=== PATIENT | female | born 1950 | race Caucasian/White ===

== ENCOUNTER → 2023-06-25 15:57 | Outpatient (REF) | payer OTHER, SELFPAY ==
[2023-06-25 16:44] LABS: Albumin 4.1 g/dl (3.5-5.0); Blood Urea Nitrogen 29 mg/dl (7-17); Calcium 9.2 mg/dl (8.4-10.2); Carbon Dioxide 29 mmol/L (22-30); Chloride 102 mmol/L (98-107); Glucose 118 mg/dl (70-99); Phosphorus 4.3 mg/dl (2.5-4.5); Potassium 4.1 mmol/L (3.5-5.1); Sodium 138 mmol/L (135-145); eGFR > 60.00
== END ==
LOC: REG 15:57
PROVIDERS: ATTENDING PHYSICIAN Internal Medicine Cardiovascular Disease; FAMILY PHYSICIAN Internal Medicine
DX: R06.02 Shortness of breath (principal); I10 Essential (primary) hypertension; R73.03 Prediabetes; E66.9 Obesity, unspecified; I35.0 Nonrheumatic aortic (valve) stenosis
CPT/HCPCS: 36415; 80069

== ENCOUNTER → 2023-06-26 08:56 | Outpatient (REF) | payer OTHER, SELFPAY | LOC: RSP 08:56 | PROVIDERS: ATTENDING PHYSICIAN Internal Medicine Cardiovascular Disease; FAMILY PHYSICIAN Internal Medicine | DX: R06.02 Shortness of breath (principal); I10 Essential (primary) hypertension; R73.03 Prediabetes; I35.0 Nonrheumatic aortic (valve) stenosis | CPT/HCPCS: 94727; 94729; 94060 ==

== ENCOUNTER → 2023-07-09 14:23 | Outpatient (REF) | payer OTHER, SELFPAY ==
[2023-07-09 15:54] LABS: D-Dimer 0.56 ug/mlFEU (0.00-0.50)
== END ==
LOC: REG 14:23
PROVIDERS: ATTENDING PHYSICIAN Nurse Practitioner Adult Health
DX: R06.09 Other forms of dyspnea (principal)
CPT/HCPCS: 36415; 85379

== ENCOUNTER → 2023-07-20 10:16 | Outpatient (REF) | payer OTHER, SELFPAY | LOC: HWRAD 10:16 | PROVIDERS: ATTENDING PHYSICIAN Nurse Practitioner Adult Health; FAMILY PHYSICIAN Internal Medicine | DX: R79.89 Other specified abnormal findings of blood chemistry (principal); R06.09 Other forms of dyspnea | CPT/HCPCS: 71275; Q9967 ==

== ENCOUNTER → 2024-04-09 14:05 | Outpatient (REF) | payer OTHER, SELFPAY | LOC: RCS 14:05 | PROVIDERS: ATTENDING PHYSICIAN Internal Medicine Cardiovascular Disease; FAMILY PHYSICIAN Internal Medicine | DX: R06.02 Shortness of breath (principal); Z95.3 Presence of xenogenic heart valve | CPT/HCPCS: 93306; Q9950 ==

== ENCOUNTER 2024-05-28 07:52 | Inpatient (IN) | payer OTHER, SELFPAY ==
[2024-05-21 13:45] VITALS: BMI 39.2
[2024-05-21 13:47] LABS: Hematocrit 41.8 % (37.0-47.0); Hemoglobin 13.5 g/dL (12.0-16.0); Mean Corp Hgb Conc. 32.3 g/dL (33.0-37.0); Mean Corpuscular Hgb 29.3 pg (27.0-31.0); Mean Corpuscular Volume 90.7 fL (81.0-99.0); Mean Platelet Volume 11.1 fL (7.4-10.4); Platelet Count 224 10^3/uL (130-400); Red Blood Cell Count 4.61 10^6/uL (4.20-5.40); Red Cell Dist. Width 14.3 % (11.5-14.5); White Blood Cell Count 7.8 10^3/uL (4.8-10.8)
[2024-05-21 14:14] LABS: ALT (SGPT) 32 U/L (0-35); AST (SGOT) 24 U/L (14-36); Albumin 4.2 g/dl (3.5-5.0); Alkaline Phosphatase 116 U/L (38-126); Blood Urea Nitrogen 19 mg/dl (7-17); Calcium 9.2 mg/dl (8.4-10.2); Carbon Dioxide 29 mmol/L (22-30); Chloride 100 mmol/L (98-107); Estimated Creatinine Clearance 73 ml/min; Glucose 102 mg/dl (70-99); Potassium 4.3 mmol/L (3.5-5.1); Sodium 137 mmol/L (135-145); Total Bilirubin 0.7 mg/dl (0.2-1.3); Total Protein 6.5 g/dl (6.3-8.2); eGFR > 60.00
[2024-05-22 08:51] LABS: Glycohemoglobin (HgbA1c) 6.1 % (4.0-5.6)
[2024-05-22 14:22] VITALS: BMI 39.2
[2024-05-28] VITALS (21 sets, daily range): BP systolic 119–164; BP diastolic 49–78; PULSE 6–67; O2SAT 96
[2024-05-28] MEDS: CELEBREX 200 MG PO (08:25)
[2024-05-28] MEDS: TYLENOL 650 MG PO ×3 (08:25→20:51)
[2024-05-28] MEDS: NORMOSOL-R/PLASMALYTE-A 1000 IV ×2 (08:49→15:15)
--- NOTE | 2024-05-28 10:57 | W.PN.UPDATE ---
Update Note
Progress Note Update
L TKA 05/28/24
DVT ppx ASA
PMH:
1. Osteoarthritis.
2. Morbid obesity, BMI 39.1.
3. Borderline diabetes.
4. Aortic stenosis, s/p AVR bioprosthetic, 2022.
5. CVA, 2022, with residual memory and balance deficits.
6. Hypertension.
7. Hyperlipidemia.
8. Chronic dyspnea on exertion.
9. Restrictive lung disease.
10. Obstructive sleep apnea, CPAP compliant.
11. Fatty liver.
12. Vertigo.
13. Right foot neuropathy, s/p right total hip arthroplasty.
14. Hypothyroidism.
15. Remote tobacco abuse.
--- NOTE | 2024-05-28 11:10 | W.DS.TRANS ---
DC Summary - Web User Experience Strategist
-
Discharge Instructions:
Discharge Diagnosis/Procedures L TKA 05/28/24
Diet Diabetic, Carb Controlled
Activity With Walker
Driving Restrictions No driving
Bathing Restrictions OK to Shower
Other Services PT
Instructions:
Stand-Alone Forms: Total Hip/Knee Replacement D/C
Changes to Home Medications: Yes
Discharge Medications:
DC Medications w/original date entered in [employer]
metoprolol succinate 25 mg tablet,extended release 24 hr 25 mg PO DAILY #30 tabs 07/27/22
atorvastatin 40 mg tablet 40 mg PO HS 05/19/24
fluticasone fur. 100 mcg-umeclid 62.5 mcg-vilant 25 mcg inhalat.powder (Trelegy Ellipta) 1 inh inhalation DAILY 05/19/24
furosemide 20 mg tablet 20 mg PO Q OTHER DAY 05/19/24
levothyroxine 88 mcg tablet 88 mcg PO DAILY 05/19/24
losartan 100 mg tablet 100 mg PO DAILY 05/19/24
cefadroxil 500 mg capsule 500 mg PO BID infection prevention #14 caps 05/21/24
celecoxib 200 mg capsule 200 mg PO DAILY anti-inflammatory #14 caps 05/21/24
dexamethasone 4 mg tablet 4 mg PO BID inflammation #6 tabs 05/21/24
gabapentin 300 mg capsule 300 mg PO HS sleep/pain #10 caps 05/21/24
mupirocin 2 % topical ointment 1 applic topical BID infection prevention #1 tube 05/21/24
ondansetron 4 mg disintegrating tablet 4 mg PO Q6H PRN n/v #20 tabs 05/21/24
oxycodone 5 mg tablet 5 mg PO Q6H PRN 1 tab moderate pain, 2 tabs severe pain #30 tabs 05/21/24
Saccharomyces boulardii 250 mg capsule (Florastor) 250 mg PO BID #1 cap 05/28/24
acetaminophen 325 mg tablet (Tylenol) 650 mg (2 x 325 mg) PO QID #1 tab 05/28/24
aspirin 325 mg tablet,delayed release (Joana Aspirin) 325 mg PO DAILY Blood clot prevention/tx #0 tabs 05/28/24
docusate sodium 100 mg capsule (Colace) 100 mg PO BID stool softner #1 cap 05/28/24
magnesium hydroxide 400 mg/5 mL oral suspension (Milk of Magnesia) 30 ml PO HS PRN Constipation #1 mL 05/28/24
sennosides 8.6 mg tablet (Senokot) 17.2 mg (2 x 8.6 mg) PO BID laxative #2 tabs 05/28/24
Home Medication Changes
cefadroxil 500 mg capsule 500 mg PO BID infection prevention #14 caps 05/21/24
celecoxib 200 mg capsule 200 mg PO DAILY anti-inflammatory #14 caps 05/21/24
dexamethasone 4 mg tablet 4 mg PO BID inflammation #6 tabs 05/21/24
gabapentin 300 mg capsule 300 mg PO HS sleep/pain #10 caps 05/21/24
mupirocin 2 % topical ointment 1 applic topical BID infection prevention #1 tube 05/21/24
ondansetron 4 mg disintegrating tablet 4 mg PO Q6H PRN n/v #20 tabs 05/21/24
oxycodone 5 mg tablet 5 mg PO Q6H PRN 1 tab moderate pain, 2 tabs severe pain #30 tabs 05/21/24
Saccharomyces boulardii 250 mg capsule (Florastor) 250 mg PO BID #1 cap 05/28/24
acetaminophen 325 mg tablet (Tylenol) 650 mg (2 x 325 mg) PO QID #1 tab 05/28/24
aspirin 325 mg tablet,delayed release (Joana Aspirin) 325 mg PO DAILY Blood clot prevention/tx #0 tabs 05/28/24
docusate sodium 100 mg capsule (Colace) 100 mg PO BID stool softner #1 cap 05/28/24
magnesium hydroxide 400 mg/5 mL oral suspension (Milk of Magnesia) 30 ml PO HS PRN Constipation #1 mL 05/28/24
sennosides 8.6 mg tablet (Senokot) 17.2 mg (2 x 8.6 mg) PO BID laxative #2 tabs 05/28/24
Pending Results: No
[2024-05-28] MEDS: ROXICODONE 5 MG PO (12:14)
[2024-05-28] MEDS: DILAUDID 0.5 MG IV (14:36)
[2024-05-28] MEDS: TYLENOL PO (15:15)
--- NOTE | 2024-05-28 15:44 | PTCARENOTE ---
pt admitted to 2S room 2108 from the PACU at 1515. pt arrived via bed, awake and alert. pt oriented to room, call machuca, bed controls and plan of care with verbalized understanding. nursing assessment completed as documented. Left knee dressing
w/scant amount of shadowing noted. neurovascular checks , sensation, and pulse palpable. tolerating sips of water and margarita santana, denies nausea. care ongoing.
[2024-05-28] MEDS: ROXICODONE 10 MG PO (17:47)
[2024-05-28] MEDS: ASPIRIN 325 MG PO (17:47)
[2024-05-28] MEDS: ANCEF 5 IV (17:48)
[2024-05-28] MEDS: SYMBICORT 80/4.5 MCG INHALER 2 PUFF INH (20:30)
[2024-05-28] MEDS: COLACE 100 MG PO (20:50)
[2024-05-28] MEDS: SENOKOT 17.2 MG PO (20:50)
[2024-05-28] MEDS: DECADRON 6 MG IV (20:51)
[2024-05-28] MEDS: ULTRAM 50 MG PO (20:51)
[2024-05-28] MEDS: TORADOL 15 MG IV (20:51)
[2024-05-28] MEDS: BACTROBAN 2% OINTMENT 1 APPLIC NASAL (20:51)
[2024-05-28] MEDS: NEURONTIN 300 MG PO (22:13)
[2024-05-28] MEDS: LIPITOR 40 MG PO (22:14)
[2024-05-29] VITALS (7 sets, daily range): BP systolic 123–190; BP diastolic 59–92; PULSE 73–86
[2024-05-29] MEDS: TYLENOL PO (00:40)
[2024-05-29] MEDS: ANCEF 5 IV (02:37)
[2024-05-29] MEDS: TYLENOL 650 MG PO ×5 (03:42→20:08)
[2024-05-29] MEDS: SYNTHROID 88 MCG PO (05:05)
[2024-05-29] MEDS: ROXICODONE 10 MG PO (05:57)
[2024-05-29] MEDS: SYMBICORT 80/4.5 MCG INHALER 2 PUFF INH ×2 (07:35→20:58)
[2024-05-29] MEDS: SPIRIVA RESPIMAT 2.5 MCG 2 PUFF INH (07:35)
[2024-05-29] MEDS: ASPIRIN 325 MG PO (08:30)
[2024-05-29] MEDS: BACTROBAN 2% OINTMENT 1 APPLIC NASAL ×2 (08:30→20:09)
[2024-05-29] MEDS: SENOKOT 17.2 MG PO ×2 (08:30→20:08)
[2024-05-29] MEDS: CELEBREX 200 MG PO (08:30)
[2024-05-29] MEDS: DECADRON 6 MG IV (08:31)
[2024-05-29] MEDS: COLACE 100 MG PO ×2 (08:31→20:08)
[2024-05-29] MEDS: TOPROL XL 25 MG PO (08:32)
[2024-05-29] MEDS: ULTRAM 50 MG PO ×2 (08:32→20:08)
[2024-05-29] MEDS: TORADOL 15 MG IV ×2 (08:32→20:08)
[2024-05-29] MEDS: FLUSH (NSS) 1 FLUSH IV (08:33)
--- NOTE | 2024-05-29 10:54 | W.PN.ORTHO ---
Today's Communication / Plan
-
d/c
Assessment
.
Distal Motor Intact: Yes
Dressing:
Clean, dry and intact.
Assessment:
Morbid obesity, BMI 39.1.
Borderline diabetes.
-Cefadroxil ppx
Aortic stenosis, s/p AVR bioprosthetic, 2022.
-stable on tele
CVA, 2022, with residual memory and balance deficits--mod I RW
Chronic dyspnea on exertion.
Restrictive lung disease.
Obstructive sleep apnea, CPAP compliant.
Remote tobacco abuse.
--O2 sats stable RA
Plan
.
Surgery / Date: L TKA 05/28/24
DVT Prophylaxis: Aspirin
Activity:
Out of bed.
PT/OT
Discharge Plan: Home w/ Outpatient PT
Subjective
.
.:
Patient resting comfortably.
Vital Signs and Labs
.
Vital Signs and Labs:
Lab Results
05/21/24 12:16
05/21/24 12:17
Temp Pulse Resp BP Pulse Ox
97.8 F 71 16 149/59 99
05/29/24 07:20 05/29/24 08:32 05/29/24 07:38 05/29/24 08:32 05/29/24 07:38
Non-invasive Hgb result: 12.6
Physical Exam
-
HEENT: No pallor, cyanosis, or jaundice. Throat clear.
NECK: Supple. No JVD.
RESPIRATORY: Lungs clear to auscultation.
CVS: S1, S2 normal. RRR.� No murmur, rub or gallop.
ABDOMEN: Soft, non-tender. No distension. BS+/normal.
EXTREMITIES: strength equal, no calf pain with palpation
WOOD TREATING INSPECTOR: AOx3. No focal deficits. telephone station repairer grossly intact
--- NOTE | 2024-05-29 12:02 | CM ---
Addendum entered by Raegan Mckay 05/29/24 16:03:
Pt appealed discharge
Given DND
Clinical information sent to Laura
Original Note:
Met with pt at bedside
Pt reports she lives alone in a 2 story home; 1 step to enter, 12 steps to 2nd fl - has 1/2 bath on FF
Reports independent at baseline with adl's, shopping, home management. Sometimes uses RW for ambulation
DME - rolling walker, single point cane, CPAP (unsure of provider), shower rails
SNF - [facility] in past
HH - [facility] in past
Has ride at discharge - sister
PCP - Noah Patel
Pharm - [facility]
Discussed discharge plan - reports did not schedule outpatient PT prior to surgery. Discussed HH - agreeable to HH - reports no preference
TT sent to [facility] Liaison for HH needs - RN/PT/OT. Neal WHALEY updated
Reports she has some friends who will check in with her. Offered info for private homemakers/companions - interested - will provide with resources.
Given IMM
Plan - home with [facility]
[2024-05-29] MEDS: ROXICODONE 5 MG PO ×2 (12:33→22:37)
--- NOTE | 2024-05-29 13:13 | VNURNOTE ---
[facility] liaison met with patient to discuss [facility] nurse/therapy, visits, schedule, and homebound status. Patient is agreeable and understands that visits at home with be 2-3 x per week to teach medical management. [facility] brochure provided with contact
information. Patient is aware that [facility] will contact her within 1-2 days after discharge from . [facility] referral completed in [facility].
[2024-05-29] MEDS: COZAAR 25 MG PO (14:37)
--- NOTE | 2024-05-29 17:00 | PTCARENOTE ---
assumed care of pt from previous shift at 0715, pt out of bed to chair. assessment as documented. pt medicated per MAR for left knee pain.
pt expressing concerns about being discharged today. pt began to work with PT and pt became increasingly more upset and agitated concerning discharge plan to go home. pt talking over nurse and not receptive to instruction or education by therapist
or nurse. Case management made aware and to see pt. pt then told this sign writer hand her sister was coming to pick her up and no one here cares about her needs. much reassurance provided and plan of care reviewed, sister arrived and pt becoming more
agitated and yelling at PCT, and her sister.
upon entering room, sister expressing concerns about pt and discharge plans. plan of care reviewed and pt's sister told RN pt is c/o feeling dizzy. Nancy Heck made aware. orthostatic vitals done as documented. pt anxious and flushed. Cozaar
provided per MAR. pt then informed RN that she was calling medicare to appeal her discharge. Nancy Heck made aware. care ongoing.
--- NOTE | 2024-05-29 19:45 | PTCARENOTE ---
@1800, entered pt's room and pt found to be walking around room w/RW herself. asked pt why she wasn't calling for assistance and reminded to use call machuca for staff to help her. pt stated she didn't need any help and she was fine! pt changed from
regular clothes to pajamas. pt refused dinner since she ate lunch so late. ice pack applied to left knee. care ongoing.
[2024-05-29] MEDS: LIPITOR 40 MG PO (22:37)
[2024-05-29] MEDS: NEURONTIN 300 MG PO (22:37)
[2024-05-30] MEDS: TYLENOL PO (00:24)
[2024-05-30] MEDS: TYLENOL 650 MG PO ×3 (04:46→14:54)
[2024-05-30] MEDS: SYNTHROID 88 MCG PO (04:46)
[2024-05-30 07:11] VITALS: BP 152/70
[2024-05-30] MEDS: SPIRIVA RESPIMAT 2.5 MCG 2 PUFF INH (07:51)
[2024-05-30] MEDS: SYMBICORT 80/4.5 MCG INHALER 2 PUFF INH (07:51)
[2024-05-30] MEDS: TOPROL XL 25 MG PO (08:54)
[2024-05-30] MEDS: ULTRAM 50 MG PO (08:56)
[2024-05-30] MEDS: ASPIRIN 325 MG PO (08:56)
[2024-05-30] MEDS: CELEBREX 200 MG PO (08:56)
[2024-05-30] MEDS: COLACE 100 MG PO (08:57)
[2024-05-30] MEDS: SENOKOT 17.2 MG PO (08:57)
--- NOTE | 2024-05-30 14:58 | CM ---
Laura found in favor of pt
Neal Heck made aware
Given IMM
Pt aware [facility] to follow at discharge. Was also given list of private caretakers if she feels she needs more assistance
Sister will transport home at time of discharge
Plan - anticipate home with [facility] when medically ready
[2024-05-30 15:00] VITALS: BP 160/68
--- NOTE | 2024-05-30 15:54 | W.PN.ORTHO ---
Today's Communication / Plan
-
d/c
Assessment
.
Distal Motor Intact: Yes
Dressing:
Clean, dry and intact.
Plan
.
Surgery / Date: L TKA 05/28/24
DVT Prophylaxis: Aspirin
Activity:
Out of bed.
PT/OT
Discharge Plan: Home w/ VN
Subjective
.
.:
Patient resting comfortably.
Vital Signs and Labs
.
Vital Signs and Labs:
Lab Results
05/21/24 12:16
05/21/24 12:17
Temp Pulse Resp BP Pulse Ox
97.3 F 69 20 160/68 95
05/30/24 15:00 05/30/24 15:00 05/30/24 15:00 05/30/24 15:00 05/30/24 15:00
Non-invasive Hgb result: 14
Physical Exam
-
HEENT: No pallor, cyanosis, or jaundice. Throat clear.
NECK: Supple. No JVD.
RESPIRATORY: Lungs clear to auscultation.
CVS: S1, S2 normal. RRR.� No murmur, rub or gallop.
ABDOMEN: Soft, non-tender. No distension. BS+/normal.
EXTREMITIES: strength equal, no calf pain with palpation
WELDER SETTER RESISTANCE MACHINE: AOx3. No focal deficits. remediation project engineer grossly intact
== END 2024-05-30 16:42 | disposition home health service (06) | DRG 470 ==
LOC: 2 SOUTH 07:52
PROVIDERS: ADMITTING PHYSICIAN Orthopaedic Surgery; FAMILY PHYSICIAN Internal Medicine; REFERRING PHYSICIAN Internal Medicine Cardiovascular Disease
PROC: 0SRD0J9 Replacement of Left Knee Joint with Synthetic Substitute, Cemented, Open Approach (ICD-10-PCS; 2024-05-28)
DX: M17.12 Unilateral primary osteoarthritis, left knee (principal); E66.01 Morbid (severe) obesity due to excess calories; Z68.39 Body mass index [BMI] 39.0-39.9, adult; R73.03 Prediabetes; I35.0 Nonrheumatic aortic (valve) stenosis; Z95.3 Presence of xenogenic heart valve; I69.111 Memory deficit following nontraumatic intracerebral hemorrhage; I69.11 Cognitive deficits following nontraumatic intracerebral hemorrhage; I10 Essential (primary) hypertension; E78.5 Hyperlipidemia, unspecified; J98.4 Other disorders of lung; G47.33 Obstructive sleep apnea (adult) (pediatric); K76.0 Fatty (change of) liver, not elsewhere classified; Z96.643 Presence of artificial hip joint, bilateral; G57.91 Unspecified mononeuropathy of right lower limb; E03.9 Hypothyroidism, unspecified; Z87.891 Personal history of nicotine dependence; Z96.653 Presence of artificial knee joint, bilateral; Z90.710 Acquired absence of both cervix and uterus; Z59.82 Transportation insecurity; Z79.890 Hormone replacement therapy; Z79.82 Long term (current) use of aspirin
CPT/HCPCS: 36415; 73560; 80053; 83036; 85027; 87070; 94640; 97110; 97116; 97163; 97166; 97530; 97535; C1713; C1776

== ENCOUNTER 2024-06-11 16:56 | Emergency (ER) | payer OTHER, SELFPAY ==
[2024-06-11 16:57] VITALS: BP 169/102
[2024-06-11 17:00] VITALS: BP 183/103
[2024-06-11 19:40] VITALS: BP 166/62
[2024-06-11 20:00] VITALS: BP 134/66
[2024-06-11 20:20] VITALS: BP 175/73
[2024-06-11 20:25] VITALS: BP 171/73
--- NOTE | 2024-06-11 20:28 | ED.GENMED ---
History of Present Illness
<Nadege Solomon MD, Resident - Last Filed: 06/11/24 22:25>
General
Chief Complaint: Blood Pressure Problem
Source: patient
Exam Limitations: none
Time Seen by Provider: 06/11/24 20:03
History of Present Illness
History of Present Illness:
74yo F with PMH HTN, aortic stenosis s/p AVR 2022, CVA, recent TKA 05/28/24 who presents from home to ED for elevated BPs at home. She has a history of hypertension, but does not regularly monitor her BP at home. Since her knee surgery, she has had
visiting nurses almost daily-- VN have commented on elevated BPs multiple times over the past week ranging from 158-180/70-96. Today she reports mild lightheadedness and nausea. Tolerating regular diet, no emesis. She has knee pain from her recent
surgery but is generally improving. Denies vertigo, visual changes, chest pain, shortness of breath, headache.
Past History
<Nadege Solomon MD, Resident - Last Filed: 06/11/24 22:25>
Past History
ED Past Medical History: CVA, HTN, Hypercholesterolemia, Hypothyroidism and Other (Aortic stenosis, VSD, NIKIA on CPAP)
ED Past Surgical History: Cardiac (aortic valve replacement 2022), (X 4) and Orthopedic (L hip replacement 2008, R hip replacement 2016, R TKA 2020, L TKA 2024)
Patient has exhibited threatening behavior?: No
PSI?: No
Social History
Tobacco: Former smoker
Alcohol: Occasional
Drug: None
Personal:
Living: alone
Employment: Employed
Family History
Family History: Early CAD
Review of Systems
<Nadege Solomon MD, Resident - Last Filed: 06/11/24 22:25>
Review of Systems
Allergies reviewed?: Yes
Constitutional: Reports no symptoms; Denies fever, fatigue or chills
EENT: Reports no symptoms
Respiratory: Reports no symptoms; Denies cough or trouble breathing
Cardiac: Reports no symptoms; Denies chest pain, palpitations or syncope
ABD/GI: Denies abdominal pain, vomiting, diarrhea, constipated, bloody stools or black stools
: Reports no symptoms; Denies dysuria or difficulty voiding
Musculoskeletal: Reports joint pain (L knee s/p TKA 05/28/24) and joint swelling (L knee s/p TKA 05/28/24)
Skin: Reports no symptoms
Neurological: Reports no symptoms; Denies dizzy, headache, weakness or numbness
Endocrine: Reports no symptoms
Hematologic/Lymphatic: Reports no symptoms
Psychiatric: Reports no symptoms
Phy Exam
<Nadege Solomon MD, Resident - Last Filed: 06/11/24 22:25>
General Physical Exam
General Presentation: well appearing and no apparent distress
General age: appears stated age
General Skin: warm and dry
General Habitus: obese
General Mental: alert
General Hydration: appears well hydrated
Cardiovascular Exam
Cardiovascular Exam: regular rate/rhythm
Pulmonary Exam
Pulmonary Exam: lungs clear, no respiratory distress, no crackles, no rhonchi, no wheezing and no cough
Gastrointestinal Exam
Gastrointestinal Exam: non tender, soft and non distended (obese abdomen)
Neurological Exam
Neurological Exam: alert, oriented x3 and speech normal
Skin Exam
Skin Exam: normal color, warm/dry and other (well healing surgical incision L knee, mild edema LLE )
Psychiatric Exam
Psychiatric Exam: normal mood/affect
Course
<Nadege Solomon MD, Resident - Last Filed: 06/11/24 22:25>
Orders/Labs/Results
Orders:
Orders
06/11/24 17:03
EKG [Electrocardiogram (*1)] Urgent
Reason for Study: Hypertension, Benign
EKG- Treatment ONCE
06/11/24 20:51
Basic Metabolic Panel Urgent
Complete Blood Count/With Diff Urgent
Abnormal Lab Results
06/11/24
20:51
RBC 4.08 L 10^6/uL
(4.20-5.40)
Hgb 11.7 L g/dL
(12.0-16.0)
Hct 35.5 L %
(37.0-47.0)
Absolute Neuts (auto) 7.2 H 10^3/uL
(1.4-6.5)
Absolute Monos (auto) 0.7 H 10^3/uL
(0.1-0.6)
Lymphocytes % 14.6 L %
(20.5-51.1)
BUN 22 H mg/dl
(7-17)
06/11/24 20:51
06/11/24 20:51
Vital Signs
Initial and Last Documented VS:
Initial Vital Signs
Temp Pulse Resp BP Pulse Ox
97.8 F 80 16 169/102 98
06/11/24 16:57 06/11/24 16:57 06/11/24 16:57 06/11/24 16:57 06/11/24 16:57
Last Documented Vital Signs
Temp Pulse Resp BP Pulse Ox
97.8 F 67 17 171/73 99
06/11/24 16:57 06/11/24 21:15 06/11/24 21:15 06/11/24 20:25 06/11/24 20:45
<Michael Jules, DO - Last Filed: 06/11/24 21:25>
Orders/Labs/Results
Orders:
Orders
06/11/24 17:03
EKG [Electrocardiogram (*1)] Urgent
Reason for Study: Hypertension, Benign
EKG- Treatment ONCE
06/11/24 20:51
Basic Metabolic Panel Urgent
Complete Blood Count/With Diff Urgent
Abnormal Lab Results
06/11/24
20:51
RBC 4.08 L 10^6/uL
(4.20-5.40)
Hgb 11.7 L g/dL
(12.0-16.0)
Hct 35.5 L %
(37.0-47.0)
Absolute Neuts (auto) 7.2 H 10^3/uL
(1.4-6.5)
Absolute Monos (auto) 0.7 H 10^3/uL
(0.1-0.6)
Lymphocytes % 14.6 L %
(20.5-51.1)
BUN 22 H mg/dl
(7-17)
06/11/24 20:51
06/11/24 20:51
Vital Signs
Initial and Last Documented VS:
Initial Vital Signs
Temp Pulse Resp BP Pulse Ox
97.8 F 80 16 169/102 98
06/11/24 16:57 06/11/24 16:57 06/11/24 16:57 06/11/24 16:57 06/11/24 16:57
Last Documented Vital Signs
Temp Pulse Resp BP Pulse Ox
97.8 F 67 17 171/73 99
06/11/24 16:57 06/11/24 21:15 06/11/24 21:15 06/11/24 20:25 06/11/24 20:45
<Nadege Solomon MD, Resident - Last Filed: 06/11/24 22:25>
MDM/Problems Addressed
Differential Diagnosis Includes:
Worsening chronic hypertension vs elevated BP 2/2 postoperative pain
MDM/Problems Addressed:
74yo F with PMH HTN, aortic stenosis s/p AVR 2022, CVA, recent TKA 05/28/24 presenting for evaluation of elevated BPs
No symptoms of hypertensive emergency or end organ dysfunction. Will check CBC/BMP.
Reports compliance with BP medications, no missed doses
Suspect elevated BPs are due to postoperative pain from recent TKA
<Michael Jules DO - Last Filed: 06/11/24 21:25>
MDM/Problems Addressed
MDM/Problems Addressed:
Uncontrolled hypertension, postoperative knee replaced
<Michael Jules DO - Last Filed: 06/11/24 21:25>
*Pulse Oximetry
Patient hypoxic: no
*EKG
Interpreted by ED Provider?: Yes
Interpretation: normal
Rate: normal
Rhythm: sinus and PVC's
Ischemia: non-specific ST changes
*Graduate Student Interpretation
Rate: normal
Interpretation: normal
Rhythm: sinus
*Critical Care Note
Total Time (30-74mins, 75-104mins- exclusive of procedures): Not Applicable
Data Reviewed
Source: patient
Prescriptions/Medications Considered But Not Given:
Considered increasing metoprolol the patient is stable. Blood pressure trending down.
<Nadege Solomon MD, Resident - Last Filed: 06/11/24 22:25>
Update Note
Update Note:
0: BMP reassuring of normal kidney function, Cr 0.7. CBC unremarkable, mild anemia noted. BPs remain elevated though stable, systolic ranging from 133-171. Elevated BPs likely secondary to acute pain in postoperative period. Will defer chronic
management of hypertension to PCP-- discussed importance of following up with PCP as well as return to ED precautions. She is understanding and agreeable with plan. She has no further questions at this time.
ED Attending Note
<Nadege Solomon MD, Resident - Last Filed: 06/11/24 22:25>
-
Portions of this chart may have been created with voice recognition software.� Occasional wrong word or��sound alike� substitutions may have occurred due to the inherent limitations of voice recognition software.
<Michael P. DiEnna, DO - Last Filed: 06/11/24 21:25>
ED Attending Note
Patient seen and examined by attending physician: Yes
I performed a history and physical exam of patient and discussed management with resident, I reviewed resident's note and agree with documented findings and plan of care.: Yes
ED Attending Note:
74-year-old female presents concerns of her blood pressure. She recently had knee replacement surgery. Patient states that home care nurses started to make her nervous. Patient does have a history of stroke. Her blood pressure at home range
between 150 and 170 systolic. No chest pain. No shortness of breath. No numbness. No tingling. No motor weakness. Exam: Awake and alert, no focal deficits noted, feels better. Assessment and plan: Blood pressures trended down. She will
follow-up with her PCP regarding outpatient follow-up and adjustments if needed. Labs are reassuring.
Discharge Plan
Departure
Patient Disposition: Home (Routine Discharge)
Date of Disposition: 06/11/24
Time of Disposition: 21:28
Patient with high blood pressure during this ER visit?: Yes
Discharge Problem:
Hypertension
Instructions: DASH diet, High blood pressure - ED discharge instructions
Prescriptions:
No Action
metoprolol succinate 25 mg Tablet Extended Release 24 Hr
25 mg PO DAILY Qty: 30 0RF
atorvastatin 40 mg tablet
40 mg PO HS
levothyroxine 88 mcg Tablet
88 mcg PO DAILY
furosemide 20 mg Tablet
20 mg PO Q OTHER DAY
Trelegy Ellipta 100-62.5-25 mcg Blister With Device
1 inh INHALATION DAILY
losartan 100 mg Tablet
100 mg PO DAILY
mupirocin 2 % ointment
1 applic topical BID Qty: 1 0RF
Patient Comments:
Patient administered the mupirocin this morning 05/28/24 @ 06:30. Patient started this administration on 05/27/24 in the evening.
celecoxib 200 mg capsule
200 mg PO DAILY Qty: 14 0RF
Rx Instructions:
*take with food
*space out 2 hours from aspirin
cefadroxil 500 mg capsule
500 mg PO BID Qty: 14 0RF
Rx Instructions:
*Take w/ food
*Take w/ probiotic
*POST-OP USE
dexamethasone 4 mg tablet
4 mg PO BID Qty: 6 0RF
Rx Instructions:
take with food
post-op use only
gabapentin 300 mg capsule
300 mg PO HS Qty: 10 0RF
ondansetron 4 mg tablet,disintegrating
4 mg PO Q6H PRN (Reason: n/v) Qty: 20 0RF
Rx Instructions:
take 1/2h b/f pain med if recurrent nausea
allow to dissolve in mouth w/o water
oxycodone 5 mg tablet
5 mg PO Q6H PRN (Reason: 1 tab moderate pain, 2 tabs severe pain) Qty: 30 0RF
Rx Instructions:
Ongoing therapy
sennosides [Senokot] 8.6 mg tablet
17.2 mg PO BID Qty: 2 0RF
acetaminophen [Tylenol] 325 mg tablet
650 mg PO QID Qty: 1 0RF
Rx Instructions:
SCHEDULED DOSING
magnesium hydroxide [Milk of Magnesia] 400 mg/5 mL suspension
30 ml PO HS PRN (Reason: Constipation) Qty: 1 0RF
docusate sodium [Colace] 100 mg capsule
100 mg PO BID Qty: 1 0RF
Saccharomyces boulardii [Florastor] 250 mg capsule
250 mg PO BID Qty: 1 0RF
aspirin [Joana Aspirin] 325 mg Tablet,Delayed Release (Dr/Ec)
325 mg PO DAILY Qty: 0 0RF
Referrals:
Noah Patel MD [Family Provider] - Next open appointment (Call your Primary Care Provider tomorrow to discuss your blood pressure and schedule a follow up appointment. Please let them know if you have concerns about transportation to your
appointment.)
Activity Restrictions/Additional Instructions:
You were seen in the Emergency Room for high blood pressures. You have a history of high blood pressure too.
Fortunately, you do not have any symptoms of blood pressures that are suddenly too high. Your blood work was also reassuring, and showed your kidney function is normal.
Please call your Primary Care Provider tomorrow to update them on your visit to the Emergency Room and schedule follow up appointment. It is very important to see your Primary Care Provider and control your blood pressures long-term. Bring your
blood pressure cuff to your next appointment so you can compare it to the BP cuff at the doctors office. Also bring a list of your BP measurements at home.
Return to the Emergency Room for worsening symptoms such as chest pain, difficulty breathing, headache not relieved by tylenol/motrin, or any new concerns.
Interventions
Interventions:
*Risk Screen - Suicide Last Done: 06/11/24 16:57
*General Assessment Last Done: 06/11/24 21:48
*Neglect/Abuse Screening Last Done: 06/11/24 16:57
ED- Fall Risk Assessment Last Done: 06/11/24 21:48
*ED COVID-19 Vaccine History Last Done: 06/11/24 21:48
*Nursing Disposition Last Done: 06/11/24 21:48
ED- Cardiac Assessment Last Done: 06/11/24 19:43
ED- Neurological Assessment Last Done: 06/11/24 19:43
ED- Pulmonary Assessment Last Done: 06/11/24 19:43
Discharge Date and Time
Discharge Date/Time: 06/11/24 21:49
Print Language: CHADIAN
[2024-06-11 20:58] LABS: % Basophils 0.7 % (0-2); % Eosinophils 2.9 % (0-6); % Immature Granulocytes 0.4 % (0-0.5); % Lymphocytes 14.6 % (20.5-51.1); % Monocytes 6.9 % (1.7-9.3); % Neutrophils 74.5 % (42.2-75.2); Absolute Basophils 0.1 10^3/uL (0-0.2); Absolute Eosinophils 0.3 10^3/uL (0-0.7); Absolute Lymphocytes 1.4 10^3/uL (1.2-3.4); Absolute Monocytes 0.7 10^3/uL (0.1-0.6); Absolute Neutrophils 7.2 10^3/uL (1.4-6.5); Hematocrit 35.5 % (37.0-47.0); Hemoglobin 11.7 g/dL (12.0-16.0); Mean Corpuscular Hgb 28.7 pg (27.0-31.0); Mean Platelet Volume 9.9 fL (7.4-10.4); Nucleated Red Blood Cells % 0 %; Platelet Count 228 10^3/uL (130-400); Red Blood Cell Count 4.08 10^6/uL (4.20-5.40); Red Cell Dist. Width 14.5 % (11.5-14.5); White Blood Cell Count 9.6 10^3/uL (4.8-10.8)
[2024-06-11 21:16] LABS: Blood Urea Nitrogen 22 mg/dl (7-17); Calcium 9.1 mg/dl (8.4-10.2); Carbon Dioxide 27 mmol/L (22-30); Chloride 105 mmol/L (98-107); Glucose 96 mg/dl (70-99); Potassium 4.7 mmol/L (3.5-5.1); Sodium 139 mmol/L (135-145); eGFR > 60.00
== END 2024-06-11 21:49 | disposition home or self-care (01) ==
LOC: EMR 16:56
PROVIDERS: EMERGENCY PHYSICIAN Emergency Medicine; FAMILY PHYSICIAN Internal Medicine
DX: I10 Essential (primary) hypertension (principal); E78.00 Pure hypercholesterolemia, unspecified; E03.9 Hypothyroidism, unspecified; I35.0 Nonrheumatic aortic (valve) stenosis; G47.33 Obstructive sleep apnea (adult) (pediatric); Z82.49 Family history of ischemic heart disease and other diseases of the circulatory system; Z86.73 Personal history of transient ischemic attack (TIA), and cerebral infarction without residual deficits; Z87.891 Personal history of nicotine dependence; Z95.2 Presence of prosthetic heart valve; Z96.641 Presence of right artificial hip joint; Z96.659 Presence of unspecified artificial knee joint
CPT/HCPCS: 99283; 80048; 85025; 93005

== ENCOUNTER → 2024-10-30 14:32 | Outpatient (REF) | payer OTHER, SELFPAY | LOC: RCS 14:32 | PROVIDERS: ATTENDING PHYSICIAN Internal Medicine Cardiovascular Disease; FAMILY PHYSICIAN Internal Medicine | DX: R93.1 Abnormal findings on diagnostic imaging of heart and coronary circulation (principal) | CPT/HCPCS: 93306; Q9950 ==

== ENCOUNTER → 2025-03-05 15:14 | Outpatient (REF) | payer OTHER, SELFPAY ==
[2025-03-05 16:18] LABS: Hematocrit 41.6 % (37.0-47.0); Hemoglobin 13.2 g/dL (12.0-16.0); Mean Corp Hgb Conc. 31.7 g/dL (33.0-37.0); Mean Corpuscular Volume 89.1 fL (81.0-99.0); Nucleated Red Blood Cells % 0 %; Platelet Count 233 10^3/uL (130-400); Red Cell Dist. Width 14.0 % (11.5-14.5)
[2025-03-05 16:33] LABS: ALT (SGPT) 22 U/L (0-35); AST (SGOT) 20 U/L (14-36); Albumin 4.0 g/dl (3.5-5.0); Alkaline Phosphatase 116 U/L (38-126); Blood Urea Nitrogen 17 mg/dl (7-17); Calcium 9.2 mg/dl (8.4-10.2); Carbon Dioxide 30 mmol/L (22-30); Chloride 106 mmol/L (98-107); Glucose 92 mg/dl (70-99); Potassium 4.4 mmol/L (3.5-5.1); Sodium 141 mmol/L (135-145); Total Protein 6.4 g/dl (6.3-8.2); eGFR > 60.00
[2025-03-05 17:04] LABS: TSH 3.73 uIU/ml (0.47-4.68)
== END ==
LOC: REG 15:14
PROVIDERS: ATTENDING PHYSICIAN Internal Medicine
DX: K59.00 Constipation, unspecified (principal); E03.9 Hypothyroidism, unspecified; I10 Essential (primary) hypertension
CPT/HCPCS: 36415; 80053; 84439; 84443; 85025

== ENCOUNTER 2025-03-12 06:21 | Day surgery (SDC) | payer OTHER, SELFPAY | END 2025-03-12 13:54 | disposition home or self-care (01) | LOC: GI 06:21 | PROVIDERS: ATTENDING PHYSICIAN Specialist | DX: Z12.11 Encounter for screening for malignant neoplasm of colon (principal); K57.30 Diverticulosis of large intestine without perforation or abscess without bleeding; D12.2 Benign neoplasm of ascending colon; D12.3 Benign neoplasm of transverse colon; Z86.0101 Personal history of adenomatous and serrated colon polyps | CPT/HCPCS: 45385; 45380; 88305 ==

== ENCOUNTER 2025-03-26 13:36 | Inpatient (IN) | payer OTHER, SELFPAY ==
[2025-03-25 17:35] VITALS: BP 166/84
[2025-03-25 18:07] LABS: Hematocrit 43.3 % (37.0-47.0); Hemoglobin 14.5 g/dL (12.0-16.0); Mean Corp Hgb Conc. 33.5 g/dL (33.0-37.0); Mean Corpuscular Volume 85.7 fL (81.0-99.0); Nucleated Red Blood Cells % 0 %; Platelet Count 198 10^3/uL (130-400); Red Cell Dist. Width 14.0 % (11.5-14.5)
[2025-03-25 18:25] LABS: COVID-19 Antigen Negative (Negative)
[2025-03-25 18:29] LABS: ALT (SGPT) 17 U/L (0-35); AST (SGOT) 19 U/L (14-36); Albumin 4.3 g/dl (3.5-5.0); Alkaline Phosphatase 117 U/L (38-126); Blood Urea Nitrogen 18 mg/dl (7-17); Calcium 9.2 mg/dl (8.4-10.2); Carbon Dioxide 21 mmol/L (22-30); Chloride 103 mmol/L (98-107); Glucose 147 mg/dl (70-99); Lipase 40 U/L (23-300); Potassium 4.1 mmol/L (3.5-5.1); Sodium 132 mmol/L (135-145); Total Protein 7.1 g/dl (6.3-8.2); eGFR 59.12
[2025-03-25 20:03] LABS: Urine Character Cloudy (Clear)
[2025-03-25 20:19] LABS: Urine White Cell >100 /HPF (0-5)
--- NOTE | 2025-03-25 20:46 | ED.GENMED ---
History of Present Illness
General
Chief Complaint: Abdominal Pain
Source: patient
Exam Limitations: none
Time Seen by Provider: 03/25/25 20:23
Nursing documentation reviewed up to this point in time: agreed with
History of Present Illness
History of Present Illness:
The patient is a 75-year-old female with history of aortic stenosis status post tissue AVR 2022, obstructive sleep apnea utilizes CPAP, hypertension, hyperlipidemia, hypothyroidism, CVA, presenting with a two-day history of fever, chills, and body
aches. She also reports new onset burning during urination which began today, with no prior history of urinary tract infections. The patient states she was unaware she had a fever. Symptoms worsen during the evening, impacting her sleep; she falls
asleep briefly but is awakened by discomfort. She has experienced nausea and vomiting today but denies diarrhea.
The patient mentions right upper quadrant tenderness noticed last night but denies pulling any muscles or participating in vigorous workouts. She describes no specific pain associated with the area. A history of aortic valve replacement with a
tissue valve is noted.
She has also noted some lower substernal chest discomfort, worse at nighttime, worse throughout the day today especially with onset of nausea and vomiting. She has had no hematemesis.
She has noted intermittent dry cough today. No nasal congestion or sore throat. No headache.
No history of similar episodes in the past.
No recent travel. No close contacts with similar symptoms.
She has not taken anything for her symptoms.
Past History
Past History
ED Past Medical History: CVA, HTN, Hypercholesterolemia, Hypothyroidism and Other (Aortic stenosis, VSD, NIKIA on CPAP)
ED Past Surgical History: Cardiac (aortic valve replacement 2022), (X 4) and Orthopedic (L hip replacement 2008, R hip replacement 2016, R TKA 2020, L TKA 2024)
Patient has exhibited threatening behavior?: No
PSI?: No
Social History
Tobacco: Former smoker
Alcohol: Occasional
Drug: None
Personal:
Living: alone
Employment: Employed
Family History
Family History: Early CAD
Phy Exam
Physical Exam
Physical Exam:
GENERAL: 75-year-old woman appears somewhat younger than stated age. She is bright and alert, pleasant, easily communicative, appears in no acute distress. Febrile at 101.7 �F. Patient was unaware that she had a fever.
EYE: anicteric
NECK: Supple, nontender, no meningismus, no significant adenopathy.
ENT: posterior pharynx is clear, oral mucosa is very minimally dry. TM clear b/l, nares patent.
CARDIAC: Regular rhythm, mildly tachycardic. no murmur.
LUNGS: Clear breath sounds bilaterally, no acute respiratory distress, no wheezes/rales/rhonchi. No cough appreciated during exam.
ABDOMEN: Rotund, soft, nondistended, mild tenderness epigastric region, mild to moderate tenderness right upper quadrant, no r/g, no cvat. normoactive BS.
NEUROLOGICAL: Alert and oriented x3, no focal neuro deficits.
SKIN: Mildly hot to touch and dry, normal color, skin intact. No rash.
MUSCULOSKELETAL: No C/C/E. peripheral pulses are full and equal b/l. No palpable tenderness.
PSYCH: Normal and appropriate interaction.
Sepsis
Sepsis Screening
Sepsis Assessment: Sepsis
Sepsis Screen
Sepsis Screen: Sepsis
Date: 03/25/25
Time: 20:40
Course
Orders/Labs/Results
Orders:
Orders
03/25/25 17:40
Electrocardiogram (*1) Urgent
Reason for Study: Other
Other Reason for Exam: Possible Sepsis
03/25/25 17:41
EKG- Treatment ONCE
03/25/25 17:54
COVID-19 Antigen Urgent
Source: Nasal Swab
Complete Blood Count/With Diff Urgent
Comprehensive Metabolic Panel Urgent
Lactic Acid Q4H
Comment: ON ICE, CANCEL 2ND ORDER IF FIRST LACTIC ACID LEVEL <2
Lipase Urgent
Blood Culture Q20M
VERITO Source: Blood/Venous
Specimen Description:
Comment: Urgent from separate sites. If patient screens positive for possible sepsis
03/25/25 17:57
Influenza A+B Rapid Molecular Urgent
VERITO Source: Nasal Swab
Specimen Description:
03/25/25 19:56
Urinalysis Reflex To Culture Urgent
Urine Microscopic Reflex Cult Urgent
Urine Culture Urgent
VERITO Source: U
Specimen Description:
03/25/25 20:40
0.9% Sodium Chloride 1000 ml [Nss] 1,000 ml IV BOLUS
Acetaminophen [Tylenol] 1,000 mg PO NOW STA
CefTRIAXone [Rocephin] 1,000 mg IV NOW STA
03/25/25 20:43
CT Abd/pelvis W Iv Cont Urgent
Comment:
Reason For Exam: fever, RUQ pain, N/V
03/25/25 20:45
CR Chest - 2 Views Urgent
Comment:
Reason For Exam: fever x 2 days, CP, cough-onset today
03/25/25 20:55
Troponin I Urgent
Blood Culture Q20M
VERITO Source: Blood/Venous
Specimen Description:
Comment: Urgent from separate sites. If patient screens positive for possible sepsis
Abnormal Lab Results
03/25/25 03/25/25
17:54 19:56
WBC 15.7 H 10^3/uL
(4.8-10.8)
MPV 11.0 H fL
(7.4-10.4)
Abs Immat Gran (auto) 0.1 H 10^3/uL
(0-0.05)
Absolute Neuts (auto) 14.1 H 10^3/uL
(1.4-6.5)
Absolute Lymphs (auto) 0.5 L 10^3/uL
(1.2-3.4)
Absolute Monos (auto) 0.9 H 10^3/uL
(0.1-0.6)
Neutrophils % 90.2 H %
(42.2-75.2)
Lymphocytes % 3.1 L %
(20.5-51.1)
Sodium 132 L mmol/L
(135-145)
Carbon Dioxide 21 L mmol/L
(22-30)
BUN 18 H mg/dl
(7-17)
Glucose 147 H mg/dl
(70-99)
Total Bilirubin 1.7 H mg/dl
(0.2-1.3)
Ur Occult Blood Reflex 4+ A
(Negative)
Leukocyte Esterase Rfl 3+ A
(Negative)
Urine WBC (Reflex) >100 A /HPF
(0-5)
Urine Bacteria (Reflex) Many A
(Negative)
Urine Albumin (Reflex) 3+ A
(Neg - Trace)
03/25/25 17:54
03/25/25 17:54
Vital Signs
Initial and Last Documented VS:
Initial Vital Signs
Temp Pulse Resp BP Pulse Ox
101.5 F H 112 16 166/84 97
03/25/25 17:35 03/25/25 17:35 03/25/25 17:35 03/25/25 17:35 03/25/25 17:35
Last Documented Vital Signs
Temp Pulse Resp BP Pulse Ox
98.2 F 84 16 146/78 100
03/25/25 22:32 03/25/25 22:32 03/25/25 22:32 03/25/25 22:32 03/25/25 22:32
MDM/Problems Addressed
Differential Diagnosis Includes:
The Differential Diagnosis includes, in no particular order and is not limited to:
- Urinary tract infection
- Pyelonephritis
- Gallbladder disease
- Pneumonia
- Viral infection
- Bacterial infection
- Gastroenteritis
- Dehydration
- Acute kidney injury
- Medication side effect
MDM/Problems Addressed:
Acute febrile illness
Acute UTI symptoms
Acute nausea and vomiting, right upper quadrant pain
Acute chest pain
Noted to be moderately febrile, mildly tachycardic, normotensive.
Meets clinical criteria for SIRS. Concern for sepsis.
With onset of chest pain, this could certainly be GERD in nature but must also consider ACS. No history of thromboembolism, denies shortness of breath, no leg pain or swelling thus PE is unlikely.
With history of nausea and vomiting throughout the day today, concern for acute dehydration
Right upper quadrant pain, concern for cholecystitis, pyelonephritis, diverticulitis, less likely appendicitis.
Labs thus far reveal elevated white blood cell count of 17.7.
Chemistries show mild prerenal azotemia. Mildly elevated T. bili of 1.7. All other LFTs as well as lipase within normal limits.
Urinalysis quite suspicious for UTI with many bacteria, greater than 100 WBCs.
Lactic acid is normal at 1.3.
COVID and flu testing are negative.
Will initiate IV fluid bolus, give Tylenol for fever and will initiate Rocephin for suspected UTI.
Blood cultures are pending.
Will check chest x-ray as well as CT abdomen pelvis.
Due to concern for potential bacteremia with history of aortic valve replacement, multiple joint replacements patient will require IV antibiotics and admission to hospital.
Blood cultures are pending.
Chronic conditions affecting care:
History of tissue aortic valve replacement, bilateral hip as well as bilateral knee replacements.
Obstructive sleep apnea�utilizes CPAP
History of hypertension, hyperlipidemia, CVA, hypothyroidism
*Radiology
Radiology exam reviewed: radiology read reviewed (CT shows mild right perinephric stranding and enhancement of the proximal right collecting system suggesting infection. Nonvisualization of the UVJ due to bilateral hip replacements. There is also
note of a rounded mildly hypodense area left kidney measuring 2.8 cm. This is new compared to previo)
*Pulse Oximetry
SaO2: 97
Oxygen Mode of Delivery: Room air
Patient hypoxic: no
*EKG
Interpreted by ED Provider?: Yes
Interpretation: abnormal
Comparison EKG: no changes (Unchanged from previous June 2024 save for heart rate has increased)
Rate: tachycardiac
Rhythm: sinus
Tarzan: normal axis
Interval: first degree heart block
QRS Pattern: poor R-wave progression and wide non-specific
Ischemia: non-specific ST changes
*Critical Care Note
Total Time (30-74mins, 75-104mins- exclusive of procedures): Not Applicable
ED Attending Note
-
Portions of this chart may have been created with voice recognition software.� Occasional wrong word or��sound alike� substitutions may have occurred due to the inherent limitations of voice recognition software.
Discharge Plan
Departure
Patient Disposition: Admit
Date of Disposition: 03/25/25
Time of Disposition: 22:58
Admit to: Med/Surg
Admit to doctor: [facility]
Presentation/result/management discussed w/ accepting MD/DO: Hospitalist
Condition: Fair
Discharge Problem:
Acute bacterial pyelonephritis, SIRS (systemic inflammatory response syndrome), Sepsis
Prescriptions:
No Action
metoprolol succinate 25 mg Tablet Extended Release 24 Hr
25 mg PO DAILY Qty: 30 0RF
atorvastatin 40 mg tablet
40 mg PO HS
levothyroxine 88 mcg Tablet
88 mcg PO DAILY
furosemide 20 mg Tablet
20 mg PO Q OTHER DAY
Trelegy Ellipta 100-62.5-25 mcg Blister With Device
1 inh INHALATION DAILY
losartan 100 mg Tablet
100 mg PO DAILY
mupirocin 2 % ointment
1 applic topical BID Qty: 1 0RF
Patient Comments:
Patient administered the mupirocin this morning 05/28/24 @ 06:30. Patient started this administration on 05/27/24 in the evening.
celecoxib 200 mg capsule
200 mg PO DAILY Qty: 14 0RF
Rx Instructions:
*take with food
*space out 2 hours from aspirin
cefadroxil 500 mg capsule
500 mg PO BID Qty: 14 0RF
Rx Instructions:
*Take w/ food
*Take w/ probiotic
*POST-OP USE
dexamethasone 4 mg tablet
4 mg PO BID Qty: 6 0RF
Rx Instructions:
take with food
post-op use only
gabapentin 300 mg capsule
300 mg PO HS Qty: 10 0RF
ondansetron 4 mg tablet,disintegrating
4 mg PO Q6H PRN (Reason: n/v) Qty: 20 0RF
Rx Instructions:
take 1/2h b/f pain med if recurrent nausea
allow to dissolve in mouth w/o water
oxycodone 5 mg tablet
5 mg PO Q6H PRN (Reason: 1 tab moderate pain, 2 tabs severe pain) Qty: 30 0RF
Rx Instructions:
Ongoing therapy
sennosides [Senokot] 8.6 mg tablet
17.2 mg PO BID Qty: 2 0RF
acetaminophen [Tylenol] 325 mg tablet
650 mg PO QID Qty: 1 0RF
Rx Instructions:
SCHEDULED DOSING
magnesium hydroxide [Milk of Magnesia] 400 mg/5 mL suspension
30 ml PO HS PRN (Reason: Constipation) Qty: 1 0RF
docusate sodium [Colace] 100 mg capsule
100 mg PO BID Qty: 1 0RF
Saccharomyces boulardii [Florastor] 250 mg capsule
250 mg PO BID Qty: 1 0RF
aspirin [Joana Aspirin] 325 mg Tablet,Delayed Release (Dr/Ec)
325 mg PO DAILY Qty: 0 0RF
Referrals:
Noah Patel MD [Family Provider, Internal Medicine]
Interventions
Interventions:
*Risk Screen - Suicide Last Done: 03/25/25 17:35
*General Assessment Last Done: 03/25/25 21:20
*Neglect/Abuse Screening Last Done: 03/25/25 17:35
*ED- Fall Risk Assessment Last Done: 03/25/25 21:20
AJ-Sqxhob-Mnhhhaoecx Assessment Last Done: 03/25/25 21:20
Discharge Date and Time
Print Language: LAO
[2025-03-25] MEDS: ROCEPHIN 1000 MG IV (20:53)
[2025-03-25] MEDS: TYLENOL 1000 MG PO (20:53)
[2025-03-25] MEDS: NSS 1000 IV (20:54)
[2025-03-25 21:36] LABS: Troponin I 0.021 ng/ml
[2025-03-25 22:32] VITALS: BP 146/78
--- NOTE | 2025-03-25 23:01 | HPS.HSE ---
Family Physician
-
Family Physician: Noah Patel
Chief Complaint
-
fatigue, abdominal pain with nausea and vomiting for 2 days
History of Present Illness
Patient is a 75-year-old female with past medical history significant for hypertension, hyperlipidemia, hypothyroidism, HFpEF, paroxysmal atrial fibrillation, CVA, mild aortic stenosis, restrictive lung disease and NIKIA who presented to [facility] ED for
evaluation of fatigue, abdominal pain with nausea and vomiting for 2 days. Patient reports she has had above mentioned symptoms for past 2 days with associated right flank and right lower back pain. She does mention some chest discomfort, that
sounds to be associated with anxiety. Denies any recent sick contact, cough, shortness of breath, constipation or diarrhea.
Medical History
Past Medical History
Past Medical History: Reports Other
Additional Past Medical History:
hypertension
hyperlipidemia
hypothyroidism
paroxysmal atrial fibrillation [brief, post AVR]
CVA
valvular disease (AVR 06/2022)
mild aortic stenosis
restrictive lung disease
INKIA
Past Surgical History: Reports Other
Additional Past Surgical History:
section x 4
Finger Fracture
Hip replacement
bilateral hips
DNC for uterine polyps 07/2020
Knee Replacement right 04/2021
Cardiac cath 05/24/2022
Bioprosthetic aortic valve replacement 07/03/2022
Left TKA 05/28/2024
Social History
Tobacco: Former Smoker
Alcohol: Occasional
Drug: None
Personal: Single
Living: Alone
Employment: Employed
Family History
Family History: Other (Positive for diabetes, heart disease, hypertension. No history of strokes. No history of cancers.)
Allergies / Home Medications
Allergies reflects when Allergies were last updated in [facility].
Home Medications with original date entered in [facility]
Allergy/Medication List:
Allergies
Allergy/AdvReac Type Severity Reaction Status Date / Time
No Known Allergies Allergy Verified 03/25/25 17:35
Home Medications
atorvastatin 40 mg tablet 40 mg PO HS 05/19/24
fluticasone fur. 100 mcg-umeclid 62.5 mcg-vilant 25 mcg inhalat.powder (Trelegy Ellipta) 1 inh inhalation DAILY 05/19/24
furosemide 20 mg tablet 20 mg PO Q OTHER DAY PRN edema 05/19/24
levothyroxine 88 mcg tablet 88 mcg PO DAILY 05/19/24
losartan 100 mg tablet 100 mg PO DAILY 05/19/24
aspirin 325 mg tablet,delayed release (Joana Aspirin) 325 mg PO DAILY Blood clot prevention/tx #0 tabs 05/28/24
metoprolol succinate 25 mg tablet,extended release 24 hr 50 mg PO DAILY 03/25/25
Review of Systems
-
History Source: Patient
Constitutional: Reports Fever and Chills
EENT: Denies Sore Throat
Respiratory: Denies Cough, Hemoptysis or Trouble Breathing
Cardiac: Reports Chest Pain (mild epigastric discomfort ); Denies Diaphoresis, Palpitations or Syncope
Abdomen/GI: Reports Abdominal Pain, Nausea and Vomiting; Denies Diarrhea or Constipated
: Reports Dysuria; Denies Frequency or Urgency
Skin: Denies Itching or Rash
Neurological: Denies Dizzy, Headache, Weakness or Numbness
Physical Exam
Vital Signs
Vital Signs
Temp Pulse Resp BP Pulse Ox
98.2 F 84 16 146/78 100
03/25/25 22:32 03/25/25 22:32 03/25/25 22:32 03/25/25 22:32 03/25/25 22:32
Physical Exam
General: Well Developed, Well Nourished, No Apparent Distress, Comfortable, Conversant, Fever and Obese
HEENT: NormoCephalic, Moist mucous membranes, PERRLA, Ears Appear Normal and Hearing Impaired
Respiratory: Clear and Non Labored Respirations; No Wheezes, Rales or Rhonchi
Cardiac: Regular Rhythm; No Murmur, Rub, Gallop or Peripheral Edema
GI: Soft, Normal Bowel Sounds and Tender
Musculoskeletal: No Clubbing, No Cyanosis and No Edema
Skin: Warm and IV/Catheter Site
Neuro: Awake and AO x 3
Psych: Calm
Laboratory Results
-
03/25/25 17:54
03/25/25 17:54
Laboratory Results
Lactic Acid Cancelled 03/25/25 21:45
Total Bilirubin 1.7 mg/dl (0.2-1.3) H 03/25/25 17:54
AST 19 U/L (14-36) 03/25/25 17:54
ALT 17 U/L (0-35) 03/25/25 17:54
Alkaline Phosphatase 117 U/L (38-126) 03/25/25 17:54
Troponin I 0.021 ng/ml 03/25/25 20:55
Lipase 40 U/L (23-300) 03/25/25 17:54
Data Reviewed
-
CT Scan: Report Reviewed by me (Abd/Pel: Enhancement of the right proximal collecting system suggesting infection. New Mild right perinephric stranding. Nonvisualization of the UVJ. New. A distal stone cannot excluded. Possible left renal mass.
New. Nonurgent MRI examination recommended. Pyelonephritis not completely excluded bu)
Medical Tests (Nuc Med, Echo, EKG etc): Report Reviewed by me (EKG: SINUS TACHYCARDIA WITH PREMATURE ATRIAL COMPLEXES WITH Aberrant conduction ANTEROSEPTAL INFARCT (CITED ON OR BEFORE 15-Jun-2006))
Lab Data: Labs Reviewed by me (WBC 15.7, Neut 90.2, Na 132, )
Impression/Plan
-
IMPRESSION/PLAN:
#abdominal pain likely 2/2 right-sided pyelonephritis seems nonobstructive
2 days of abdominal, right flank, right lower back with nausea and vomiting
WBC 15.7, Neut 90.2, Na 132
Influenza: negative
Covid: negative
UA: indicative of UTI
Urine Cx: pending
Blood Cx: pending
EKG: SINUS TACHYCARDIA WITH PREMATURE ATRIAL COMPLEXES WITH Aberrant conduction
ANTEROSEPTAL INFARCT (CITED ON OR BEFORE 15-Jun-2006)
CXR: pending
Abd/Pel CT: Enhancement of the right proximal collecting system suggesting infection. New
Mild right perinephric stranding. Nonvisualization of the UVJ. New. A distal stone cannot excluded.
Possible left renal mass. New. Nonurgent MRI examination recommended. Pyelonephritis not completely excluded but less likely. Clinical and laboratory correlation recommended.
Mild pancreatic fatty infiltration. Progressed
Too small to characterize hypodense right renal lesion likely benign cyst. Stable
Mild diffuse bladder wall thickening. This can be seen with cystitis and bladder outlet obstruction. Stable
- Admit to med/surg
- IV ceftriaxone
- IVF NSS 80cc/hr
- supportive care
- Consult Urology
#chest pain
trop 0.021
- trend troponin
#hypertension
- continue losartan
#hyperlipidemia
- continue atorvastatin
#hypothyroidism
- continue levothyroxine
#paroxysmal atrial fibrillation
- continue metoprolol
#CVA
- continue aspirin
#restrictive lung disease
- continue Trelegy
#NIKIA
CPAP at night
Code status: full code
DVT prophylaxis: Lovenox sq
--- NOTE | 2025-03-25 23:32 | W.PN.UPDATE ---
Update Note
Progress Note Update
This is an addendum to the H&P written by Cristal Pedroza on 03/25/2025. Patient seen and examined independently with [facility] [employer] [facility].
75-year-old female past medical history of aortic stenosis status post bioprosthetic aortic valve replacement, hypertension, obesity, borderline diabetes, CVA with residual mild memory and balance deficit, chronic dyspnea on exertion, restrictive
lung disease, obstructive sleep apnea on CPAP, former tobacco use, osteoarthritis, hypothyroidism, right foot neuropathy presenting with 2 days fevers, chills, body aches. Burning with urination. Nausea and vomiting. Right upper quadrant
tenderness. Also substernal chest discomfort, dry cough today.
Vital signs show fever 101.5. Tachycardia 112.
Labs show leukocytosis 15.7. Troponin 0.021. EKG shows sinus tachycardia, no ischemic changes. Urinalysis showed greater than 100 WBC. +3 leukocyte esterase. 4+ occult blood.
CT abdomen pelvis shows enhancement of the right proximal collecting system suggesting infection. Mild right perinephric stranding. Mild diffuse bladder wall thickening. Nonvisualization of the UVJ, distal stone cannot be excluded. Possible left
renal mass which is new.
Chest x-ray appears to be unremarkable, report pending. COVID and influenza negative.
Patient with right-sided pyelonephritis seems nonobstructive. Urine culture, blood cultures, IV fluids. Ceftriaxone.
There is also possible left renal mass not correlating with symptoms.
Will consult urology since UVJ stone cannot be excluded and given left kidney mass.
Chest pressure likely from anxiety but will trend troponins.
[2025-03-26 00:33] VITALS: BP 182/85; BMI 38.3
[2025-03-26] MEDS: NSS 1000 IV ×2 (00:38→16:37)
[2025-03-26 01:02] VITALS: BP 152/69
--- NOTE | 2025-03-26 01:16 | PTCARENOTE ---
received pt from ED. pt ambulated from stretcher to bed. pt A&O x 3. pt offers no current complaints and appears comfortable in bed. call machuca within reach. plan of care ongoing.
[2025-03-26 01:21] VITALS: PULSE 67
[2025-03-26] MEDS: TYLENOL 650 MG PO ×2 (03:00→16:42)
[2025-03-26] MEDS: ZOFRAN 4 MG IV ×2 (03:41→17:46)
[2025-03-26] MEDS: TYLENOL 325 MG PO (04:29)
[2025-03-26] MEDS: SYNTHROID 88 MCG PO (04:30)
[2025-03-26] MEDS: MOTRIN 400 MG PO (05:25)
[2025-03-26 06:41] LABS: Hematocrit 38.4 % (37.0-47.0); Hemoglobin 12.7 g/dL (12.0-16.0); Mean Corp Hgb Conc. 33.1 g/dL (33.0-37.0); Mean Corpuscular Volume 85.3 fL (81.0-99.0); Platelet Count 176 10^3/uL (130-400); Red Cell Dist. Width 14.0 % (11.5-14.5)
[2025-03-26] MEDS: SPIRIVA RESPIMAT 2.5 MCG 2 PUFF INH (07:09)
[2025-03-26] MEDS: SYMBICORT 80/4.5 MCG INHALER 2 PUFF INH ×2 (07:10→19:40)
[2025-03-26 07:12] LABS: Blood Urea Nitrogen 20 mg/dl (7-17); Calcium 8.2 mg/dl (8.4-10.2); Carbon Dioxide 23 mmol/L (22-30); Chloride 107 mmol/L (98-107); Estimated Creatinine Clearance 61 ml/min; Glucose 136 mg/dl (70-99); Potassium 3.6 mmol/L (3.5-5.1); Sodium 132 mmol/L (135-145); eGFR > 60.00
[2025-03-26 07:29] LABS: Troponin I 0.017 ng/ml
[2025-03-26 08:10] VITALS: BP 143/62
[2025-03-26] MEDS: ASPIRIN 325 MG PO (08:14)
[2025-03-26] MEDS: TOPROL XL 50 MG PO (08:14)
[2025-03-26] MEDS: COZAAR 100 MG PO (08:14)
--- NOTE | 2025-03-26 13:23 | W.PN.HOSP.TC ---
Today's Communication/Plan
-
Positive blood and urine cultures for E. coli, continue IV ceftriaxone and IV fluids
Urology eval
Assessment / Plan
Assessment / Plan
75F with s/p bioprosthetic AVR, HTN, CVA, restrictive lung disease, NIKIA on CPAP, hypothyroidism, P/W fevers, dysuria, found to have pyelonephritis.
Acute pyelonephritis secondary to E. coli
With SIRS (fever, leukocytosis, tachycardia)
Lactate is WNL
CT shows left renal stone and possible left renal mass
BCx, UCX both showing E. coli, final C/S pending
Empiric IV ceftriaxone
IVF
Leukocytosis improving.
Possible left renal mass
Also possibly UVJ distal stone
Nonemergent MRI
Urology consulted by overnight team
HTN
BP controlled continue losartan, beta-mikki
PAF
HR controlled continue metoprolol, not on AC
History of CVA
Continue aspirin/statin
Restrictive lung disease
Trelegy
NIKIA
CPAP
Hypothyroidism
Synthroid
DVT PPx
Lovenox
Anticipated Discharge: > 48 hours
Subjective/Interval History
-
Date of Service: March 26, 2025
Patient states she is feeling some pain in her side, feeling tired
Objective Data
-
Labs:
Laboratory Results
03/26/25
06:13
WBC 12.5 H
Hgb 12.7
Hct 38.4
Plt Count 176
Sodium 132 L
Potassium 3.6
Chloride 107
Carbon Dioxide 23
BUN 20 H
Creatinine 0.9
Glucose 136 H
Calcium 8.2 L
Vital Signs:
Vital Signs
Temp Pulse Resp BP Pulse Ox
98.6 F 72 18 143/62 100
03/26/25 08:10 03/26/25 08:14 03/26/25 08:10 03/26/25 08:14 03/26/25 11:53
I&O
03/25/25 03/26/25 03/27/25
06:59 06:59 06:59
Intake Total 1040 / 1040
Balance 1040 / 1040
Review of Systems
-
All other systems: Reviewed and negative
Physical Exam
-
General: No Apparent Distress
HEENT: Moist Mucous Membranes, Anicteric and PERRLA
Respiratory: Clear to Auscultation; Negative Wheezes, Rales or Rhonchi
Cardiac: Regular Rhythm and S1/S2; Negative Murmur, Rub or Gallop
GI: Soft, Nontender, Nondistended and Normal Bowel Sounds
Musculoskeletal: No Edema
Skin: Warm and Dry; Negative Rash, Ulcers or Lesions
Neuro: Awake and AO x 3
Hematologic / Lymphatic: No Lymphadenopathy
Psych: Calm
Data Reviewed
-
Diagnostic Radiology: Report Reviewed by me and Discussed with Patient
CT Scan: Report Reviewed by me and Discussed with Patient
Labs: Labs Reviewed by me and Discussed with Patient
--- NOTE | 2025-03-26 14:44 | CM ---
Patient seen bedside.
IA completed.
Patient lives alone in a 1 story home with 1 step to enter.
Patient drives.
Independent prior to admission without AD however does have a RW from her prior knee surgeries.
Patient has had [facility] and [facility] in the past, would like [facility] if needed.
Patient verified PCP: Amanda and Pharmacy: [facility] on [address]
Sister will transport home and assist if needed.
Plan: home no needs anticipated once medically stable.
[2025-03-26 15:09] VITALS: BP 140/70
--- NOTE | 2025-03-26 16:19 | CONS.URO ---
Consultation
-
Date/Time Consultation Performed: 4pm 03/26
Performing Provider: Peffer
Reason for Consultation: UTI, Renal lesion
Medical History
History of Present Illness
75F with past medical history significant for hypertension, hyperlipidemia, hypothyroidism, HFpEF, paroxysmal atrial fibrillation, CVA, mild aortic stenosis, restrictive lung disease and NIKIA
Presented to ED for evaluation of fatigue, abdominal pain with nausea and vomiting for 2 days.
Associated right flank and right lower back pain
No prior history or hx of stones
Found to have sepsis and evidence of UTI
CT scan showed R pyelonephritis and a possible L renal mass - distal ureter difficult to see
Pain has improved significantly today
E coli bacteremia
Past Medical History
Past Medical History: Other (as above)
Family History
Family History: Reviewed & Not Pertinent
Allergies/Home Medications
Allergies
Allergy/AdvReac Type Severity Reaction Status Date / Time
No Known Allergies Allergy Verified 03/25/25 17:35
Home Medications
�Medication �Instructions �Recorded �Confirmed �Type
atorvastatin 40 mg tablet 40 mg PO HS High Cholesterol 05/19/24 03/26/25 History
fluticasone fur. 100 mcg-umeclid 1 inh inhalation DAILY 05/19/24 03/26/25 History
62.5 mcg-vilant 25 mcg Lung/Breathing Issues
inhalat.powder (Trelegy Ellipta)
levothyroxine 88 mcg tablet 88 mcg PO DAILY Thyroid 05/19/24 03/26/25 History
losartan 100 mg tablet 100 mg PO DAILY Blood Pressure 05/19/24 03/26/25 History
aspirin 325 mg tablet,delayed 325 mg PO DAILY Blood clot 05/28/24 03/26/25 Rx
release (Joana Aspirin) prevention/tx #0 tabs
metoprolol succinate 25 mg 50 mg PO DAILY Blood Pressure 03/25/25 03/26/25 History
tablet,extended release 24 hr
Physical Exam
Vital Signs
Vital Signs
Temp Pulse Resp BP Pulse Ox
98.8 F 78 18 140/70 98
03/26/25 15:09 03/26/25 15:09 03/26/25 15:09 03/26/25 15:09 03/26/25 15:09
Lab / Testing Results
Laboratory Results
03/26/25 06:13
03/26/25 06:13
Physical Exam
General: Well Developed, Well Nourished and No Apparent Distress
Respiratory: Clear and Non Labored Respirations
GI: Soft and Non Tender
Neuro: AO x 3
Psych: Calm and Intact Judgement
Assessment / Plan
-
75F with septic E coli UTI/pyelonephritis with bacteremia
Also L renal lesion of unclear nature
- Continue abx for E coli UTI/bacteremia pending culture sensitivities
- No evidence of distal ureteral stone, obstruction, or hydronephrosis - no intervention needed
- L renal lesion of unclear etiology - possible infectious vs malignant and will require additional contrast enhanced imaging in ~1mo after resolution of infection
Outpatient follow up for further discussion after discharge
[2025-03-26] MEDS: LOVENOX 40 MG SC (17:34)
[2025-03-26] MEDS: ROCEPHIN 1000 MG IV (21:26)
[2025-03-26] MEDS: STERILE WATER FOR INJECTION 10 ML IV (21:26)
[2025-03-26] MEDS: LIPITOR 40 MG PO (22:33)
[2025-03-26 23:16] VITALS: BP 156/64
[2025-03-27] MEDS: TYLENOL 650 MG PO (00:57)
[2025-03-27] MEDS: SYNTHROID 88 MCG PO (06:27)
[2025-03-27] MEDS: NSS 1000 IV (06:32)
[2025-03-27] MEDS: SPIRIVA RESPIMAT 2.5 MCG 2 PUFF INH (07:13)
[2025-03-27] MEDS: SYMBICORT 80/4.5 MCG INHALER 2 PUFF INH ×2 (07:14→20:26)
[2025-03-27 07:19] VITALS: BP 154/67
[2025-03-27 08:03] LABS: Hematocrit 41.1 % (37.0-47.0); Hemoglobin 12.8 g/dL (12.0-16.0); Mean Corp Hgb Conc. 31.1 g/dL (33.0-37.0); Mean Corpuscular Volume 91.7 fL (81.0-99.0); Nucleated Red Blood Cells % 0 %; Platelet Count 190 10^3/uL (130-400); Red Cell Dist. Width 14.0 % (11.5-14.5)
[2025-03-27] MEDS: COZAAR 100 MG PO (08:33)
[2025-03-27] MEDS: TOPROL XL 50 MG PO (08:34)
[2025-03-27 08:39] LABS: Blood Urea Nitrogen 16 mg/dl (7-17); Calcium 8.4 mg/dl (8.4-10.2); Carbon Dioxide 26 mmol/L (22-30); Chloride 108 mmol/L (98-107); Estimated Creatinine Clearance 61 ml/min; Glucose 105 mg/dl (70-99); Potassium 4.0 mmol/L (3.5-5.1); Sodium 139 mmol/L (135-145); eGFR > 60.00
[2025-03-27] MEDS: NORVASC 5 MG PO (09:22)
[2025-03-27 09:25] VITALS: BMI 39.0
[2025-03-27] MEDS: ZOFRAN 4 MG IV (13:18)
[2025-03-27] MEDS: FLUSH (NSS) 1 FLUSH IV (13:18)
--- NOTE | 2025-03-27 14:06 | CM ---
Addendum entered by Andria Stoner 03/27/25 15:28:
Pt verbalized that she did not feel medically ready for discharge. REviewed IMM with her. At this time she does not want to pursue this option. Nurse made aware and has notified DR. Butler
Original Note:
Pt is discharged today. Her sister will be transporting her home in a car
[2025-03-27 15:51] VITALS: BP 162/71
--- NOTE | 2025-03-27 16:19 | W.PN.HOSP.TC ---
Today's Communication/Plan
-
Discharge canceled as patient did not feel ready
Assessment / Plan
Assessment / Plan
75F with s/p bioprosthetic AVR, HTN, CVA, restrictive lung disease, NIKIA on CPAP, hypothyroidism, P/W fevers, dysuria, found to have pyelonephritis.
Acute pyelonephritis secondary to E. coli
With SIRS (fever, leukocytosis, tachycardia)
Lactate is WNL
CT shows left renal stone and possible left renal mass
BCx, UCX both showing E. coli, R to gent/tetracycline, otherwise sensitive
Empiric IV ceftriaxone, changed to oral Augmentin on discharge for 7 more days
IVF stopped
Leukocytosis improving.
Possible left renal mass
Also possibly UVJ distal stone�per urology no evidence of stone, obstruction, hydro, no intervention needed
Nonemergent MRI
Urology consulted, outpatient follow-up for possible mass recommended about 1 month after resolution of infection
HTN
BP uncontrolled continue losartan, beta-mikki, and add amlodipine
PAF
HR controlled continue metoprolol
Bioprosthetic AVR
Per patient she is supposed to be on full dose aspirin 325 daily for the valve
History of CVA
Continue aspirin/statin
Restrictive lung disease
Trelegy
NIKIA
CPAP
Hypothyroidism
Synthroid
DVT PPx
Lovenox
Anticipated Discharge: Within 24 hours
Subjective/Interval History
-
Date of Service: March 27, 2025
Patient feeling nauseous and says she is not ready to go home. Initial plan for discharge has been canceled
Objective Data
-
Labs:
Laboratory Results
03/27/25
07:20
WBC 9.1
Hgb 12.8
Hct 41.1
Plt Count 190
Sodium 139
Potassium 4.0
Chloride 108 H
Carbon Dioxide 26
BUN 16
Creatinine 0.9
Glucose 105 H
Calcium 8.4
Vital Signs:
Vital Signs
Temp Pulse Resp BP Pulse Ox
100.1 F 79 16 162/71 94
03/27/25 15:51 03/27/25 15:51 03/27/25 15:51 03/27/25 15:51 03/27/25 15:51
I&O
03/26/25 03/27/25 03/28/25
06:59 06:59 06:59
Intake Total 1040 / 1040 0 / 2220
Balance 1040 / 1040 0 / 0
Review of Systems
-
All other systems: Reviewed and negative
Physical Exam
-
General: No Apparent Distress
HEENT: Moist Mucous Membranes, Anicteric and PERRLA
Respiratory: Clear to Auscultation; Negative Wheezes, Rales or Rhonchi
Cardiac: Regular Rhythm and S1/S2; Negative Murmur, Rub or Gallop
GI: Soft, Nontender, Nondistended and Normal Bowel Sounds
Musculoskeletal: No Edema
Skin: Warm and Dry; Negative Rash, Ulcers or Lesions
Neuro: Awake and AO x 3
Hematologic / Lymphatic: No Lymphadenopathy
Psych: Calm
Data Reviewed
-
Diagnostic Radiology: Report Reviewed by me and Discussed with Patient
CT Scan: Report Reviewed by me and Discussed with Patient
Labs: Labs Reviewed by me and Discussed with Patient
--- NOTE | 2025-03-27 16:24 | PTCARENOTE ---
Pt AAO x3, JONES well, ambulatory in room/to BR; moreno well. Pt anxious/forgetful at times. VSS. On room air- pulse ox 94%, no SOB noted. Abd obese, soft; moreno PO but c/o nausea; stated 'I feel as bad as I did when I came in'; stated she does not feel
ready to be dc'd home. Voids in BR without difficulty. Resting in bed at present. Will continue to monitor.
[2025-03-27] MEDS: LOVENOX 40 MG SC (17:12)
[2025-03-27] MEDS: STERILE WATER FOR INJECTION 10 ML IV (20:40)
[2025-03-27] MEDS: ROCEPHIN 1000 MG IV (20:40)
[2025-03-27] MEDS: LIPITOR 40 MG PO (22:11)
[2025-03-27 23:42] VITALS: BP 116/74
[2025-03-28] MEDS: SYNTHROID 88 MCG PO (05:28)
[2025-03-28] MEDS: SYMBICORT 80/4.5 MCG INHALER 2 PUFF INH (07:32)
[2025-03-28] MEDS: SPIRIVA RESPIMAT 2.5 MCG 2 PUFF INH (07:32)
[2025-03-28 07:45] VITALS: BP 159/91
[2025-03-28] MEDS: ASPIRIN 325 MG PO (09:16)
[2025-03-28] MEDS: NORVASC 5 MG PO (09:16)
[2025-03-28] MEDS: TOPROL XL 50 MG PO (09:16)
[2025-03-28] MEDS: COZAAR 100 MG PO (09:16)
[2025-03-28] MEDS: FLUSH (NSS) 1 FLUSH IV (09:17)
--- NOTE | 2025-03-28 11:49 | W.DCSUMMARY ---
Discharge Summary
Discharge Data
Date of Admission: 03/26/25
Date of Discharge: 03/28/25
Total time spent discharging patient (in min): 35
-
Pending Results: No
Hospital Course
Attending physician on day of discharge:
Jaja Butler MD
Discharge diagnosis:
Pyelonephritis
Bacteremia
Secondary diagnoses:
Possible left renal mass
HTN
Consultations:
Urology
Procedures:
None
Hospital course:
75F with s/p bioprosthetic AVR, HTN, CVA, restrictive lung disease, NIKIA on CPAP, hypothyroidism, P/W fevers, dysuria, found to have pyelonephritis. Blood and urine cultures were positive for E. coli, patient empirically treated with IV fluid and
IV ceftriaxone, with improvement in leukocytosis and fever, and changed to oral Augmentin on discharge. CT also showed possible left renal mass and possible UVJ distal stone, urology was consulted, no evidence of stone noted per them, they
recommend outpatient follow-up for nonemergent MRI about 1 month after resolution of infection.
Physical exam on discharge:
Gen: NAD
HEENT: PERRLA, EOMI, MMM, neck supple
Cards: RRR, no M/G/R
Resp: Lungs CTAB, no W/R/R
GI: soft, NT/ND/NABS
MSK: No edema
Skin: warm and dry, no rash, ulcer or lesions
Heme: No LAD
Psych: Calm
Neuro: AAOx3
Discharge disposition:
Home
Discharge Plan
-
Patient Disposition: Home (Routine Discharge)
Discharge Diagnosis/Procedures: Pyelonephritis and E. Coli bacteremia
Diet: Regular
Activity: As tolerated
Activity Restrictions/Additional Instructions:
Follow up with Dr. Uribe to discuss kidney mass/lesion
An MRI was ordered to complete in 1-2 months to evaluate this
The urology office will call to schedule appointment and give information on ordering the MRI
[facility]: [phone]
Referrals:
Noah Patel MD [Family Provider, Internal Medicine]
Sarabjit Uribe MD [Active, Urology]
Prescriptions:
New
amlodipine 5 mg Tablet
5 mg PO DAILY 30 Days Qty: 30 0RF
amoxicillin-pot clavulanate 875-125 mg tablet
1 tab PO Q12H 7 Days Qty: 14 0RF
aspirin 325 mg Tablet
325 mg PO DAILY Qty: 0 0RF
Continued
atorvastatin 40 mg tablet
40 mg PO HS
levothyroxine 88 mcg Tablet
88 mcg PO DAILY
Trelegy Ellipta 100-62.5-25 mcg Blister With Device
1 inh INHALATION DAILY
losartan 100 mg Tablet
100 mg PO DAILY
metoprolol succinate 25 mg tablet extended release 24 hr
50 mg PO DAILY
Discontinued
aspirin [Joana Aspirin] 325 mg Tablet,Delayed Release (Dr/Ec)
325 mg PO DAILY Qty: 0 0RF
Discharge Orders:
Discharge Patient (As Directed); Ordered 03/28/25
Ordered By: Jaja Butler
Discharge Date and Time
Print Language: KOREAN
[2025-03-28 13:46] VITALS: BP 157/72
--- NOTE | 2025-03-28 14:27 | CM ---
Pt cleared for discharge to home today. Nelly's sister will drive her home.
IMM reviewed with patient yesterday.
Plan: Discharge to home with no needs identified.
== END 2025-03-28 14:18 | disposition home or self-care (01) | DRG 690 ==
LOC: 4 EAST ACU 13:36
PROVIDERS: Nurse Practitioner Family; Student in an Organized Health Care Education/Training Program; ADMITTING PHYSICIAN Hospitalist; ATTENDING PHYSICIAN Internal Medicine; CONSULT PHYSICIAN Urology; EMERGENCY PHYSICIAN Emergency Medicine; FAMILY PHYSICIAN Internal Medicine
PROC: 5A09357 Assistance with Respiratory Ventilation, Less than 24 Consecutive Hours, Continuous Positive Airway Pressure (ICD-10-PCS; 2025-03-26)
DX: N10 Acute pyelonephritis (principal); I50.32 Chronic diastolic (congestive) heart failure; Q21.0 Ventricular septal defect; E78.00 Pure hypercholesterolemia, unspecified; G47.33 Obstructive sleep apnea (adult) (pediatric); I11.0 Hypertensive heart disease with heart failure; E03.9 Hypothyroidism, unspecified; I44.0 Atrioventricular block, first degree; I48.0 Paroxysmal atrial fibrillation; J98.4 Other disorders of lung; F41.9 Anxiety disorder, unspecified; B96.20 Unspecified Escherichia coli [E. coli] as the cause of diseases classified elsewhere; Z60.2 Problems related to living alone; Z96.653 Presence of artificial knee joint, bilateral; Z96.643 Presence of artificial hip joint, bilateral; Z95.3 Presence of xenogenic heart valve; Z87.891 Personal history of nicotine dependence; Z82.49 Family history of ischemic heart disease and other diseases of the circulatory system; Z79.890 Hormone replacement therapy; Z79.51 Long term (current) use of inhaled steroids; Z79.82 Long term (current) use of aspirin; Z86.73 Personal history of transient ischemic attack (TIA), and cerebral infarction without residual deficits; Z83.3 Family history of diabetes mellitus; Z11.52 Encounter for screening for COVID-19
CPT/HCPCS: 71046; 74177; 80048; 80053; 81003; 81015; 83605; 83690; 84484; 85025; 85027; 87040; 87077; 87086; 87154; 87186; 87205; 87502; 87811; 93005; 94640; 94660; 99285; Q9967